=== PATIENT | male | born 1960 | race Caucasian/White ===

== ENCOUNTER 2018-04-26 06:22 | Emergency (ER) | payer BC ==
[2018-04-26 06:28] VITALS: BP 159/89
--- NOTE | 2018-04-26 06:44 | EDPHY ---
H & P Time Seen by Provider: 04/26/18 06:44 HPI/ROS: CHIEF COMPLAINT: Wheezing and short of breath HISTORY OF PRESENT ILLNESS: Patient said he started getting symptoms in August of last year. He 1st noticed getting wheezing with exertion, as he is an active cyclist. He had evaluation by multiple specialists in the past few months including a stress test at [facility] 2 months ago, and buffing wheel raker at [facility] 2 weeks ago. He had initially been diagnosed by a different buffing wheel raker with vocal cord dysfunction; but tells me he was diagnosed with bronchospasm or reactive airway disease [facility] and prescribed albuterol. This included and exercise test which resulted in wheezing, with a scope which demonstrated no vocal cord dysfunction at that time. He has a follow-up in [place] on the 29 of May. Patient presents today with a week of worsening wheezing especially at night. He describes trigger with exertion although the past week it has been more at night. Associated with cough and green mucus production but not with hemoptysis or leg swelling or fever or chills. No chest pain. Not positional or exertional. He is using albuterol about twice a day which helps only briefly. REVIEW OF SYSTEMS: Eye: no change in vision ENT: no sore throat Cardiac: no chest pain or syncope Pulmonary: HPI Abdomen: No abdominal pain or vomiting Musculoskeletal: No leg pain Skin: no rash or urticaria Neuro: no headache Constitutional: no fever : no urinary symptoms A comprehensive 10 point review of systems is otherwise negative aside from elements mentioned in the history of present illness. PAST MEDICAL HISTORY: Includes total knee arthroplasty and appendectomy Social history: Nonsmoker General Appearance: Alert and conversant, cooperative. Eyes: No scleral icterus. ENT, Mouth: Normal mucous membranes. Respiratory: Patient speaks in full sentences but has faint bilateral expiratory wheezing and slightly prolonged expiratory phase, no rales or focal lung sounds or consolidation. No stridor. Cardiovascular: Regular rate and rhythm. No murmur. Gastrointestinal: Abdomen is soft and non tender. Neurological: Alert, face symmetric, normal motor and sensory in extremities. Skin: Warm and dry, no rashes. No urticaria. Musculoskeletal: No peripheral edema. No calf tenderness. Psychiatric: Not agitated. Emergency Department course/MDM: Patient presents with likely reactive airway disease, without signs or symptoms of CHF or pulmonary embolism or pneumonia or history for aspiration. Think most reasonable thing at this point given his workup by Cardiology and pulmonology is ready taken place, is to treat him with oral steroids and local primary care referral within the next 1-2 weeks. He had a chest x-ray about a month ago which he reports is normal. Today his oxygen saturation is normal, he does not have focal lung sounds on exam, afebrile. Smoking Status: Never smoked Constitutional: Initial Vital Signs Temperature (C) 36.4 C 04/26/18 06:24 Heart Rate 80 04/26/18 06:24 Respiratory Rate 16 04/26/18 06:24 Blood Pressure 159/89 H 04/26/18 06:24 O2 Sat (%) 93 04/26/18 06:24 O2 Delivery Mode Room Air Allergies/Adverse Reactions: Penicillins Allergy (Verified 04/26/18 06:28) Home Medications: Medication Instructions Recorded Albuterol Sulfate 04/26/18 Mucinex 600 MG (*) 04/26/18 predniSONE [prednisone 20mg (RX)] 20 mg PO Q12 #15 tab 04/26/18 Medical Decision Making - Data Points Medications Given: Discontinued Medications Prednisone (Prednisone) 60 mg PO EDNOW ONE Stop: 04/26/18 07:09 Last Admin: 04/26/18 07:17 Dose: 60 mg Departure - Departure Disposition: Home, Routine, Self-Care Clinical Impression: Bronchospasm Condition: Good Instructions: Bronchospasm (ED) Additional Instructions: Please follow-up with your buffing wheel raker as scheduled. Your given referrals for primary care physician as well. Dr. Garcia is induction brazer for unassigned patients today. Use albuterol inhaler 2 puffs every 6 hr for the next week or as needed. Referrals: Anh Garcia MD [[facility] Primary Care Provider] - As per Instructions Piotr Cole MD [[facility] Primary Care Provider] - As per Instructions Jeremie Coleman MD [Medical Doctor] - As per Instructions Prescriptions: predniSONE [prednisone 20mg (RX)] 20 mg PO Q12 #15 tab
[2018-04-26] MEDS ORDERED: predniSONE 20 MG TAB PO ONE (07:08)
== END 2018-04-26 07:19 | disposition home or self-care (01) ==
DX: J98.01 Acute bronchospasm (principal)
CPT/HCPCS: J7512